=== PATIENT | male | born 1945 | race Caucasian/White ===

== ENCOUNTER 2017-09-13 05:10 | Day surgery (SDC) | payer MEDICARE ==
[2017-09-12 13:50] LABS: HEMATOCRIT 40.9 % (42.0-54.0); HEMOGLOBIN 14.3 g/dL (13.5-17.5); MCH 33.1 pg (26.0-34.0); MCV 94.7 fL (80.0-100.0); MEAN PLATELET VOLUME 9.9 fL (7.4-10.4); RBC 4.32 10x6/uL (4.20-6.10); RDW 12.9 % (11.5-14.5); WBC 6.5 10x3/uL (4.8-10.8)
[2017-09-13] MEDS ORDERED: LIPITOR80 MG PO (06:23)
[2017-09-13] MEDS ORDERED: CELEXA20 MG PO (06:23)
[2017-09-13] MEDS ORDERED: PROSCAR5 MG PO (06:23)
[2017-09-13] MEDS ORDERED: FLOMAX0.4 MG PO (06:24)
[2017-09-13] MEDS ORDERED: CYCLOBENZAPRINE10 MG PO (06:24)
[2017-09-13 06:27] VITALS: BP 143/83; BMI 27.3
[2017-09-13] MEDS ORDERED: HYDROCODONE-APA1 TAB PO (08:52)
--- NOTE | 2017-09-13 08:52 | NUR ---
0824 DR JACKSON TIME OUT AND START AT 0851, NGHIA.
--- NOTE | 2017-09-13 13:05 | NUR ---
UP TO VOID, VOIDED WITHOUT DIFFICULTY. PENIS DRESSING C/D/I. IV REMOVED INTACT. STATES PAIN IS BETTER FROM [place]CO GIVEN. DISCHARGE INSTRUCTIONS AND RX GIVEN, VOICED UNDERSTANDING. DISCHARGED HOME VIA WC.
--- NOTE | 2017-09-13 13:56 | OP ---
PATIENT NAME: YENI STEWART MEDICAL RECORD: [id number] :46 [facility] DATE: SURGEON: ELIZABETH JACKSON MD DATE OF OPERATION: 09/13/2017 SURGEON: Elizabeth Jackson MD ANESTHESIA: General anesthesia by Emmanuel Mckinney CRNA. PREOPERATIVE DIAGNOSES: Left hydrocele, balanitis xerotica obliterans (BXO), and phimosis. PROCEDURE: Left hydrocelectomy -- Jaboulay procedure and circumcision. SPECIMENS: Left hydrocele sac, testis, appendix, epididymis, and foreskin of penis. FINDINGS: Left hydrocele of the cord 450 mL of fluid removed, BXO, and phimosis. BLOOD LOSS: None. CLINICAL HISTORY: This is a 72-year-old male who does not have diabetes mellitus. However, he has recurrent episodes of balanitis and phimosis has developed over the past 3 years. There is also a quite significant left hydrocele, which is very bothersome to him. He wished to have the phimosis as well as the hydrocele addressed. At the same time, he has a nonreducible umbilical hernia. Dr. Barriga will be reducing the hernia and repairing it at the same time. Dr. Barriga actually went first and I proceeded after Dr. Barriga was finished. DESCRIPTION OF PROCEDURE: The patient was already asleep. He has had his preoperative antibiotics. He is not allergic to any medications and he was given Ancef. We started with the hydrocele first. A midline incision was made about 4 cm in length. We went down to the dartos fascia. We immediately encountered the testicle. The hydrocele was entirely posterior to the testicle and was primarily a hydrocele of the cord instead of the area around the tunica vaginalis proper. We opened up the hydrocele with a stab incision. The suction was placed to evacuate 450 mL of fluid from the hydrocele. We then fully opened up the hydrocele sac and excised the redundant tissue there. The flaps of the hydrocele sac were placed around the cord and sutured to itself using running 4-0 Vicryl. This constituted the Jaboulay procedure. Any bleeding that we encountered, venous or arterial in nature, was cauterized. At the end of the procedure, the testicle was put back into its hemiscrotum. The dartos fascia was reapproximated using running 4-0 Vicryl. The skin was closed using simple interrupted 4-0 Vicryl. We then focused on the circumcision. We initially made a crush with a straight clamp in the dorsal midline of the penis and a dorsal midline slit was made with Metzenbaum scissors. Any bleeding that we encountered was cauterized. The dorsal slit allowed us to fully ottoniel the penile foreskin back. The marking was made on the mucosal portion of the penile foreskin with a marking pen. This was about 5 mm proximal to the garcía of the glans. We then placed a 2-0 nylon suture through the glans penis and used as retraction. The penis was pulled OPERATIVE REPORT [id number] YENI STEWART into full erectile length. The skin was placed back in its forward position and the cutaneous portion of the foreskin was marked at the corresponding location. In this way, we ensured that the patient would not have tethering of the penis with an erection. The incisions were made using a 15 blade. The dartos fascia was cut through using Metzenbaum scissors and cautery as needed. The foreskin was then entirely removed. The glans penis showed the signs of extensive scarring from recurrent balanitis. This constituted the BXO. There was some narrowing of the urethral meatus also from the recurrent scarring. Once the bleeding in the dartos fascia was controlled with cautery, we reapproximated the skin using simple interrupted 4-0 Vicryl. A penile nerve block was then introduced with 0.25% Marcaine without epinephrine. This was done at the base of the penis and the dorsal nerves on either side of the midline were infiltrated with a solution. We also went and performed a circumferential block at the base of the penis. A Vaseline gauze wrap was placed around the incision line and then a dressing of Kerlix wrapped around the penis and tied to itself was made. The patient will be going home today. He has a prescription for [place], which Dr. Barriga wrote. He will come and see me next week for followup. TRANSINT:[id number] Voice Confirmation ID: [id number] DOCUMENT ID: [id number] ELIZABETH JACKSON MD at 1355 CC: [id number] DICTATION DATE: 09/13/17 1014 GEOPHYSICAL COMPUTER: 09/13/17 1149 REG [facility] [address] [id number]
--- NOTE | 2017-09-14 13:11 | OP ---
PATIENT NAME: YENI STEWART MEDICAL RECORD: [id number] :46 LOCATION:[facility] ADMISSION DATE: SURGEON: CISCO MATTHEW MD DATE OF OPERATION: 09/13/2017 PREOPERATIVE DIAGNOSES: 1. Umbilical hernia. 2. Left hydrocele. 3. Phimosis. POSTOPERATIVE DIAGNOSES: 1. Umbilical hernia. 2. Left hydrocele. 3. Phimosis. PROCEDURE: Umbilical hernia repair. SURGEON: Cisco Matthew MD CO-SURGEON: Bryson Hale MD performed left hydrocelectomy with circumcision. REPORT OF OPERATION: The patient's abdomen and groin were prepped and draped in sterile fashion. A semicircular incision was made on the inferior aspect of the umbilicus. Electrocautery was used to dissect through the subcutaneous tissues and we came around the umbilical stalk. The patient had a large collection of omental fatty tissue present through the small hernia defect. We took down the hernia sac. We were able to reduce the omentum back into the abdominal cavity. The hernia defect was just a little over 1 cm in greatest diameter. The edges of the fascia were all cleaned off. We then reapproximated the fascial edges transversely using interrupted 0 Prolene times 4. The umbilicus was tacked down with interrupted 3-0 Vicryl. The subcutaneous tissues were then reapproximated with interrupted 3-0 Vicryls. We infused 10 mL of 0.25% Marcaine plain into the surrounding tissues and closed the skin with running subcutaneous 5-0 Monocryl. The wound was then dressed appropriately. At this point, Dr. Hale came in to perform the remainder of the operation. COMPLICATIONS: None. CONDITION: Stable. ANESTHESIA: General endotracheal and local. BLOOD LOSS: Minimal. TRANSINT:[id number] Voice Confirmation ID: [id number] DOCUMENT ID: [id number] CISCO MATTHEW MD at 1311 CC: [id number] DICTATION DATE: 09/13/17 0855 CODING TECHNICIAN: 09/13/17 1211 [facility] 09/13/17 [place] [address]
== END 2017-09-13 13:05 | disposition home or self-care (01) ==
LOC: D.OPS 05:10 → D.PAN 07:30 → D.OPS 12:45 → D.PAN 12:45 → D.OPS 13:05
PROVIDERS: Anesthesiology
DX: K42.9 Umbilical hernia without obstruction or gangrene (principal); N43.3 Hydrocele, unspecified; N47.1 Phimosis; Z87.891 Personal history of nicotine dependence; K21.9 Gastro-esophageal reflux disease without esophagitis; Z01.812 Encounter for preprocedural laboratory examination

== ENCOUNTER → 2017-10-03 10:53 | Outpatient (CLI) | payer MEDICARE ==
[2017-09-13 06:27] VITALS: BMI 27.3
[~2017-10-03 10:53] MED LIST: CELEXA20 MG PO; CYCLOBENZAPRINE10 MG PO; FLOMAX0.4 MG PO; HYDROCODONE-APA1 TAB PO; LIPITOR80 MG PO; PROSCAR5 MG PO
== END | disposition home or self-care (01) ==
LOC: D.US 10:53
DX: N50.9 Disorder of male genital organs, unspecified (principal)